=== PATIENT | male | born 1990 | race African-American/Black ===

== ENCOUNTER 2021-05-17 21:12 | Emergency (ER) | payer MEDICAID ==
[~2021-05-17] VITALS: Ht 167.6 cm; Wt 61.2 kg
[2021-05-17 21:35] VITALS: BP_SYST 107
--- NOTE | 2021-05-17 21:42 | NUR ---
Patient to ER bed 5 to gown for evaluation. Side rails up. Report given to Shantel HAY.
--- NOTE | 2021-05-17 21:55 | NUR ---
PATIENT AAOX4 BIB [facility] DEPARTMENT FOR MEDICAL CLEARANCE. 4 OFFICERS AT BEDSIDE WITH HANDCUFFS. PATIENT AGGITATED AND SCREAMING AND CUSSING AT [facility]. + ETOH. VSS. BLOOD SUGAR 200. DENIES ANY PAIN AT THIS TIME.
--- NOTE | 2021-05-17 22:00 | NUR ---
DR. RABAGO AT BEDSIDE FOR EVALUATION.
--- NOTE | 2021-05-17 22:10 | NUR ---
MEDICATION ADMINISTERED ORDERED. HALDOL 10 IM GIVEN. PT RESTLESS AND AGGITATED. STATING "GET THE MASK OFF MY FACE". TRYING TO KICK DEPUTY AND AGGRESSIVE.
[2021-05-17] MEDS ORDERED: NACL 0.9% 1,000 ML IV ONE (22:15)
[2021-05-17] MEDS ORDERED: HALOPERIDOL LACTATE 5 MG/ML VIAL IM ONE (22:15)
--- NOTE | 2021-05-17 22:50 | NUR ---
# 18 gauge angiocath placed to RIGHT FA. Use of asceptic technique. Opsite placed over site. Blood return noted. Blood for lab drawn from site. Flushed with 10 cc of normal saline. No evidence of infiltration noted. Patient tolerated well. Medicated per MD orders. IVF infusing with no s/s of infiltration at this time. Will cont to monitor
--- NOTE | 2021-05-17 23:18 | NUR ---
PT RELEASED FROM [facility].
[2021-05-17 23:39] LABS: CALCIUM 8.4 mg/dL (8.4-11.0); CREATININE 0.98 mg/dL (0.55-1.30); POTASSIUM 3.3 mmol/L (3.5-5.1)
[2021-05-17 23:45] LABS: ALBUMIN 4.1 g/dL (3.4-4.8); TOTAL BILIRUBIN 0.4 mg/dL (0.0-1.0)
[2021-05-17 23:53] LABS: BASOPHILS % (AUTO) 0.5 % (0.0-2.0); EOSINOPHILS % (AUTO) 0.5 % (0.0-4.0); HEMATOCRIT 43.4 % (36-54); HEMOGLOBIN 14.8 g/dL (14.0-18.0); LYMPHOCYTES # (AUTO) 0.8 K/uL (1.0-5.5); LYMPHOCYTES % (AUTO) 11.3 % (20.5-51.5); MEAN CORPUSCULAR HEMOGLOBIN 31 pg (27-31); MEAN CORPUSCULAR HGB CONC 34 % (32-36); MEAN CORPUSCULAR VOLUME 91 fL (79.0-98.0); MONOCYTES # (AUTO) 0.2 K/uL (0.0-1.0); MONOCYTES % (AUTO) 2.9 % (1.7-9.3); NEUTROPHILS # (AUTO) 6.1 K/uL (1.8-7.7); NEUTROPHILS % (AUTO) 84.8 % (40.0-70.0); PLATELET COUNT (AUTO) 144 K/uL (130-430); RED BLOOD CELL COUNT(AUTO) 4.78 MIL/uL (4.2-6.2); RED CELL DISTRIBUTION WIDTH 12.8 % (9.0-15.0); WHITE BLOOD COUNT (AUTO) 7.2 K/uL (4.8-10.8)
--- NOTE | 2021-05-18 | NUR ---
Patient resting quietly. No acute distress noted. Vital signs within normal range. IVF INFUSING WITHOUT DIFFICULTIES.
--- NOTE | 2021-05-18 01:00 | NUR ---
PT SLEEPING AT THIS TIME. VSS.
--- NOTE | 2021-05-18 02:30 | NUR ---
PT URINATED ON SELF. LINEN CHANGED. PROVIDED BLANKET AND PILLOW FOR COMFORT.
--- NOTE | 2021-05-18 03:00 | NUR ---
Patient resting quietly. No acute distress noted. Vital signs within normal range.
--- NOTE | 2021-05-18 04:05 | NUR ---
ASSISTED PT TO AMBULATE. PT CURRENTLY STILL UNSTEADY ON FEET. STATED FEELING "DIZZY". ASSISTED BACK TO BED.
--- NOTE | 2021-05-18 05:10 | NUR ---
Patient resting quietly. No acute distress noted. Vital signs within normal range.
--- NOTE | 2021-05-18 06:50 | NUR ---
PT AMBULATED WITHOUT DIFFICULTIES. DENIES ANY DIZZINESS.
--- NOTE | 2021-05-18 07:00 | NUR ---
Patient given written and verbal discharge instructions and verbalizes understanding. DR. GEM SUMNER MD discussed with patient the results and treatment provided. Patient in stable condition. ID arm band removed. IV catheter removed intact and dressing applied, no active bleeding. Patient educated on pain management and to follow up with PMD. Pain Scale 0/10. Opportunity for questions provided and answered. Medication side effect fact sheet provided.
[2021-05-18 07:06] VITALS: BP_SYST 123
== END 2021-05-18 07:00 ==
LOC: SED 21:12
DX: F10.129 Alcohol abuse with intoxication, unspecified (principal); E11.65 Type 2 diabetes mellitus with hyperglycemia; Y90.8 Blood alcohol level of 240 mg/100 ml or more
CPT/HCPCS: 36415; 80053; 85025; 96360; 96372; 99283; G0482; J1630; J7030

== ENCOUNTER 2023-09-07 17:23 | Inpatient (IN) | payer MEDICAID ==
[~2023-09-07] VITALS: Ht 177.8 cm; Wt 90.3 kg
[2023-09-07 17:25] VITALS: BP_SYST 132; PULSE 100; RESP 22; TEMP 97.8; O2SAT 98
[2023-09-07 17:51] LABS: BASOPHILS # (AUTO) 0.1 K/uL (0.0-0.2); BASOPHILS % (AUTO) 0.6 % (0.0-2.0); EOSINOPHILS # (AUTO) 0.6 K/uL (0.0-0.4); EOSINOPHILS % (AUTO) 4.8 % (0.0-4.0); HEMATOCRIT 43.7 % (36-54); HEMOGLOBIN 14.4 g/dL (14.0-18.0); LYMPHOCYTES # (AUTO) 3.7 K/uL (1.0-5.5); LYMPHOCYTES % (AUTO) 27.4 % (20.5-51.5); MEAN CORPUSCULAR HEMOGLOBIN 30 pg (27-31); MEAN CORPUSCULAR HGB CONC 33 % (32-36); MEAN CORPUSCULAR VOLUME 91 fL (79.0-98.0); MONOCYTES # (AUTO) 0.7 K/uL (0.0-1.0); MONOCYTES % (AUTO) 5.6 % (1.7-9.3); NEUTROPHILS # (AUTO) 8.3 K/uL (1.8-7.7); NEUTROPHILS % (AUTO) 61.6 % (40.0-70.0); PLATELET COUNT (AUTO) 184 K/uL (130-430); RED BLOOD CELL COUNT(AUTO) 4.82 MIL/uL (4.2-6.2); RED CELL DISTRIBUTION WIDTH 13.6 % (9.0-15.0); WHITE BLOOD COUNT (AUTO) 13.4 K/uL (4.8-10.8)
[2023-09-07 17:57] LABS: BILIRUBIN,URINE NEGATIVE (NEGATIVE); BLOOD, URINE 1+ (NEGATIVE); CLARITY/URINE CLEAR (CLEAR); GLUCOSE,URINE 3+ (NEGATIVE); KETONES,URINE NEGATIVE (NEGATIVE); LEUKOCYTE ESTERASE ,URINE NEGATIVE (NEGATIVE); NITRITE, URINE NEGATIVE (NEGATIVE); PH,URINE 5.5 (5.0-8.0); PROTEIN URINE NEGATIVE (NEGATIVE); UROBILINOGEN,URINE 0.2 (0.2-1.0)
[2023-09-07 18:05] LABS: BLOOD GAS PCO2 36.5 mmHg (32.0-45.0); BLOOD GAS PH 7.192 (7.350-7.450)
[2023-09-07 18:06] LABS: BLOOD GAS BASE EXCESS -13.6 mmol/L (-3.0-3.0); BLOOD GAS HCO3 13.7 mmol/L (21.0-27.0); BLOOD GAS PO2 185.9 mmHg (75.0-100.0); FRACTIONATED INSPIRED OXYGEN 0.28 % (0.21-100.00)
[2023-09-07 18:16] LABS: ALANINE AMINOTRANSFERASE 44 U/L (12-78); ALBUMIN 4.1 g/dL (3.4-4.8); ANION GAP 29 (5-15); ASPARTATE AMINOTRANSFERASE 27 U/L (10-37); BILIRUBIN,DIRECT 0.1 mg/dL (0.0-0.3); CALCIUM 9.1 mg/dL (8.4-11.0); CARBON DIOXIDE 15 mmol/L (23-29); CHLORIDE 96 mmol/L (98-107); CREATININE 1.51 mg/dL (0.55-1.30); GFR AFRICAN AMERICAN 66 mL/min (>90); POTASSIUM 3.1 mmol/L (3.5-5.1); SODIUM SERUM 140 mmol/L (136-145); TOTAL BILIRUBIN 0.4 mg/dL (0.0-1.0); TOTAL PROTEIN, SERUM 7.6 g/dL (6.4-8.3); UREA NITROGEN, BLOOD 11 mg/dL (8-21)
[2023-09-07 18:17] LABS: BARBITURATE, URINE NEGATIVE (NEG <=200); BENZODIAZEPINE, URINE NEGATIVE (NEG <=150); CANNABINOID, URINE POSITIVE (NEG <=50); COCAINE, URINE NEGATIVE (NEG <=150); METHAMPHETAMINES SCREEN,URINE NEGATIVE (NEG <=500); OPIATE, URINE NEGATIVE (NEG <=100); PHENCYCLIDINE SCREEN,URINE NEGATIVE (NEG <=25); URINE AMPHETAMINE NEGATIVE (NEG <=500); URINE METHADONE NEGATIVE (NEG <=200); URINE OXYCODONE SCREEN NEGATIVE (NEG <=100)
[2023-09-07] MEDS: NACL 0.9% 1,000 ML IV ONE (18:17)
[2023-09-07 18:18] LABS: UR TRICYCLIC ANTIDEPRESSANTS NEGATIVE (NEG <=300)
[2023-09-07 18:22] LABS: GFR NON AFRICAN-AMERICAN 55 mL/min (>90)
[2023-09-07 18:23] LABS: ALCOHOL, BLOOD 381 mg/dL (<10); GLUCOSE 512 mg/dL (74-106)
[2023-09-07 18:33] LABS: ACETONE, SERUM NEGATIVE (NEGATIVE)
[2023-09-07 19:08] LABS: COLOR,URINE STRAW (YELLOW)
[2023-09-07 19:35] LABS: BACTERIA,URINE RARE /HPF (None Seen); MUCUS,URINE None Seen /LPF (None Seen); RBC,URINE 0-3 /HPF (0-3); WBC,URINE 0-3 /HPF (0-3)
[2023-09-07] MEDS ORDERED: KCL 20 mEq in 100 mL (PREMIX) 200 ML IV ONE (19:46)
[2023-09-07] MEDS: KCL 40 mEq in 100 mL (PREMIX) 100 ML IV ONE (19:56)
[2023-09-07] MEDS ORDERED: THIAMINE HCL 200 MG/2 ML VIAL ONE (20:28)
[2023-09-07] MEDS ORDERED: FOLIC ACID 5 MG/ML VIAL IV ONE ×2 (20:28→20:50)
[2023-09-07] MEDS ORDERED: MAGNESIUM SULFATE 1 GM/2 ML VIAL ONE (20:28)
[2023-09-07] MEDS ORDERED: DEXTROSE 50% JECT 50 ML DISP.SYRIN IVP PRN (20:30)
[2023-09-07] MEDS: LORazepam 2 MG/ML VIAL IVP PRN (20:37)
[2023-09-07] MEDS: FOLIC ACID 1 MG, THIAMINE HCL 100 MG, MAGNESIUM SULFATE 1 GM, MVI 10 ML in NACL 0.9% 1,... IV ONE (20:50)
[2023-09-07 20:54] LABS: BASOPHILS % (AUTO) 0.3 % (0.0-2.0); EOSINOPHILS % (AUTO) 0.4 % (0.0-4.0); HEMATOCRIT 39.3 % (36-54); HEMOGLOBIN 13.4 g/dL (14.0-18.0); LYMPHOCYTES # (AUTO) 0.8 K/uL (1.0-5.5); LYMPHOCYTES % (AUTO) 8.3 % (20.5-51.5); MEAN CORPUSCULAR HEMOGLOBIN 30 pg (27-31); MEAN CORPUSCULAR HGB CONC 34 % (32-36); MEAN CORPUSCULAR VOLUME 89 fL (79.0-98.0); MONOCYTES # (AUTO) 0.4 K/uL (0.0-1.0); MONOCYTES % (AUTO) 4.4 % (1.7-9.3); NEUTROPHILS # (AUTO) 8.3 K/uL (1.8-7.7); NEUTROPHILS % (AUTO) 86.6 % (40.0-70.0); PLATELET COUNT (AUTO) 159 K/uL (130-430); RED BLOOD CELL COUNT(AUTO) 4.41 MIL/uL (4.2-6.2); RED CELL DISTRIBUTION WIDTH 13.4 % (9.0-15.0); WHITE BLOOD COUNT (AUTO) 9.5 K/uL (4.8-10.8)
[2023-09-07] MEDS: INSULIN REGULAR, HUMAN 100 UNITS in NS 99 ML IV PRN (21:02)
[2023-09-07 21:22] LABS: CALCIUM 7.5 mg/dL (8.4-11.0); CREATININE 1.09 mg/dL (0.55-1.30); POTASSIUM 3.9 mmol/L (3.5-5.1)
[2023-09-07 23:57] LABS: ANION GAP 14 (5-15); CALCIUM 7.4 mg/dL (8.4-11.0); CARBON DIOXIDE 23 mmol/L (23-29); CHLORIDE 111 mmol/L (98-107); CREATININE 0.95 mg/dL (0.55-1.30); GFR AFRICAN AMERICAN 113 mL/min (>90); GLUCOSE 219 mg/dL (74-106); SODIUM SERUM 148 mmol/L (136-145); UREA NITROGEN, BLOOD 5 mg/dL (8-21)
[2023-09-08] VITALS (13 sets, daily range): BP systolic 97–131; PULSE 72–107; RESP 12–25; TEMP 97–98; O2SAT 96–100
[2023-09-08 00:01] LABS: GFR NON AFRICAN-AMERICAN 93 mL/min (>90)
[2023-09-08 00:02] LABS: ALANINE AMINOTRANSFERASE 37 U/L (12-78); ALBUMIN 3.4 g/dL (3.4-4.8); ASPARTATE AMINOTRANSFERASE 31 U/L (10-37); TOTAL BILIRUBIN 0.2 mg/dL (0.0-1.0); TOTAL PROTEIN, SERUM 6.1 g/dL (6.4-8.3)
[2023-09-08 00:21] LABS: ACETONE, SERUM NEGATIVE (NEGATIVE)
[2023-09-08] MEDS: HALOPERIDOL LACTATE 5 MG/ML VIAL IM PRN (00:28)
[2023-09-08] MEDS: KCL 20 mEq in D5/0.45NS 1000mL 1,000 ML IV SCH (00:36)
[2023-09-08] MEDS: cefTRIAXone 1 GM IVPB PREMIX 50 ML IV ONE (00:40)
[2023-09-08] MEDS: cefTRIAXone 1 GM in D5W 50 ML IV SCH (00:40)
[2023-09-08] MEDS ORDERED: HALOPERIDOL LACTATE 5 MG/ML VIAL IM PRN (01:15)
[2023-09-08] MEDS: INSULIN NPH 100 UNITS/ML 10 ML VIAL SUBCUT ONE (02:18)
[2023-09-08] MEDS: INSULIN REGULAR, HUMAN 100 UNITS/ML, 3 ML VIAL (humuLIN R) SUBCUT PRN (03:50)
[2023-09-08 06:56] LABS: BASOPHILS # (AUTO) 0.1 K/uL (0.0-0.2); BASOPHILS % (AUTO) 0.6 % (0.0-2.0); EOSINOPHILS # (AUTO) 0.3 K/uL (0.0-0.4); EOSINOPHILS % (AUTO) 2.7 % (0.0-4.0); HEMATOCRIT 37.5 % (36-54); HEMOGLOBIN 12.9 g/dL (14.0-18.0); LYMPHOCYTES # (AUTO) 2.6 K/uL (1.0-5.5); LYMPHOCYTES % (AUTO) 27.6 % (20.5-51.5); MEAN CORPUSCULAR HEMOGLOBIN 30 pg (27-31); MEAN CORPUSCULAR HGB CONC 34 % (32-36); MEAN CORPUSCULAR VOLUME 89 fL (79.0-98.0); MONOCYTES # (AUTO) 0.8 K/uL (0.0-1.0); MONOCYTES % (AUTO) 8.2 % (1.7-9.3); NEUTROPHILS # (AUTO) 5.7 K/uL (1.8-7.7); NEUTROPHILS % (AUTO) 60.9 % (40.0-70.0); PLATELET COUNT (AUTO) 131 K/uL (130-430); RED BLOOD CELL COUNT(AUTO) 4.23 MIL/uL (4.2-6.2); RED CELL DISTRIBUTION WIDTH 13.4 % (9.0-15.0); WHITE BLOOD COUNT (AUTO) 9.3 K/uL (4.8-10.8)
[2023-09-08 07:29] LABS: ALBUMIN 3.2 g/dL (3.4-4.8); CALCIUM 7.5 mg/dL (8.4-11.0); CREATININE 0.8 mg/dL (0.55-1.30); PHOSPHORUS 2.5 mg/dL (2.7-4.5); POTASSIUM 4.1 mmol/L (3.5-5.1); TOTAL BILIRUBIN 0.2 mg/dL (0.0-1.0); TOTAL PROTEIN, SERUM 6.3 g/dL (6.4-8.3)
[2023-09-08] MEDS ORDERED: FOLIC ACID 1 MG, THIAMINE HCL 100 MG, MAGNESIUM SULFATE 1 GM, MVI 10 ML in NACL 0.9% 1,... IV SCH (12:45)
[2023-09-08] MEDS ORDERED: HALOPERIDOL 1 MG TABLET (HALDOL) PO ONE (12:45)
[2023-09-08] MEDS ORDERED: chlordiazePOXIDE HCL 25 MG CAPSULE PO SCH (15:00)
[2023-09-08] MEDS ORDERED: FOLIC ACID 1 MG, MVI 10 ML in NACL 0.9% 1,000 ML IV SCH (15:00)
[2023-09-08] MEDS ORDERED: THIAMINE HCL 100 MG, MAGNESIUM SULFATE 1 GM in NS 100 ML IV SCH (15:00)
[2023-09-08] MEDS ORDERED: INSULIN NPH 100 UNITS/ML 10 ML VIAL SUBCUT SCH (17:00)
[2023-09-08] MEDS ORDERED: HALOPERIDOL 1 MG TABLET (HALDOL) PO SCH (21:00)
[2023-10-01] MEDS ORDERED: INSU100I30 SUBCUT (12:33)
[2023-10-01] MEDS ORDERED: LORA2TAB95 PO (12:33)
[2023-10-01] MEDS ORDERED: HYDR-500 PO (12:33)
[2023-10-01] MEDS ORDERED: INSU100I26 SUBCUT (12:33)
[2023-10-01] MEDS ORDERED: ARIP400S3 IM (12:33)
[2023-10-01] MEDS ORDERED: ATOR10TA68 PO (12:33)
[2023-10-01] MEDS ORDERED: SERT-131 PO (12:33)
[2023-10-01] MEDS ORDERED: DIVA-74 PO (12:34)
[2023-10-01] MEDS ORDERED: DIVA500T4 PO (12:34)
[2023-10-01] MEDS ORDERED: HAL5 PO (12:34)
[2023-10-02] MEDS ORDERED: CHOL100038 PO (14:48)
== END 2023-09-08 15:35 | disposition left against medical advice (07) | DRG 420 ==
LOC: SED 17:23 → EDBD 18:47 → SIC 18:47 → MERGE 18:47 → SIC 23:23
PROVIDERS: ADMIT Internal Medicine; ATTEND Internal Medicine
DX: E11.10 Type 2 diabetes mellitus with ketoacidosis without coma (principal); N17.0 Acute kidney failure with tubular necrosis; G93.41 Metabolic encephalopathy; R65.10 Systemic inflammatory response syndrome (SIRS) of non-infectious origin without acute organ dysfunction; E87.6 Hypokalemia; Z53.29 Procedure and treatment not carried out because of patient's decision for other reasons; F10.129 Alcohol abuse with intoxication, unspecified; F12.10 Cannabis abuse, uncomplicated; Y90.8 Blood alcohol level of 240 mg/100 ml or more
CPT/HCPCS: 36415; 36600; 70450-TC; 71045; 76376; 80048; 80053; 80076; 80307; 81000; 81001; 81015; 82009; 82803; 82948; 83605; 83735; 84100; 84484; 85025; 87040; 99291; G0482; J0696; J1630; J1815; J2060; J3411; J3475; J3480; J3490; J7030; J7060